=== PATIENT | female | born 1955 | race Caucasian/White ===

== ENCOUNTER → 2017-03-02 | Outpatient (CLI) | payer BC | LOC: KOH-I 08:48 | DX: M25.562 Pain in left knee (principal) | CPT/HCPCS: 73562 ==

== ENCOUNTER 2017-03-26 10:56 | Emergency (ER) | payer BC | END 2017-03-26 12:05 | disposition home or self-care (01) | LOC: ER1 10:56 | DX: R03.0 Elevated blood-pressure reading, without diagnosis of hypertension (principal) | CPT/HCPCS: 93005; 99283 ==

== ENCOUNTER → 2017-03-30 | Outpatient (CLI) | payer BC | LOC: KOH-I 09:24 | DX: M25.562 Pain in left knee (principal); M71.22 Synovial cyst of popliteal space [Baker], left knee | CPT/HCPCS: 73721 ==

== ENCOUNTER 2022-01-14 07:28 | Emergency (ER) | payer MEDICARE, OTHER ==
[2022-01-14 09:15] LABS: HEMOGLOBIN 14.8 gm/dl (12.3-15.3); RED BLOOD COUNT 5.02 M/UL (4.00-5.10); WHITE BLOOD COUNT 11.8 K/UL (4.5-11.0)
[2022-01-14 09:45] LABS: BUN/CREATININE RATIO 19 (0-10)
== END 2022-01-14 11:00 | disposition home or self-care (01) ==
LOC: ER1 07:28
PROVIDERS: Family Medicine
DX: N13.2 Hydronephrosis with renal and ureteral calculous obstruction (principal); E11.9 Type 2 diabetes mellitus without complications; E78.5 Hyperlipidemia, unspecified; I10 Essential (primary) hypertension
CPT/HCPCS: 80053; 81001; 85025; 99284